=== PATIENT | female | born 1975 | race Caucasian/White ===

== ENCOUNTER 2018-03-18 23:54 | Emergency (ER) | payer SELFPAY ==
[2018-03-19] MEDS ORDERED: IBUPROFEN 400 MG TAB ONE (00:48)
[2018-03-19] MEDS ORDERED: HYDROCODONE/APAP 7.5/325 MG TAB ONE (00:49)
--- NOTE | 2018-03-19 01:08 | ER ---
Nurse's Notes [facility] Name: Elvira Vicente Age: 42 yrs Sex: Female : 1975 Arrival Date: 03/18/2018 Time: 23:55 Bed 19 Private MD: Diagnosis: Right Distal Radius Fracture Presentation: 03/19 00:01 Presenting complaint: Patient states: This morning patient felt and hurt her right ao wrist. Patient complains of pain in the thump radiating to the elbow. Patient took two Aleve pill with no relieve. Transition of care: patient was not received from another setting of care. Onset of symptoms was March 18, 2018 at 09:00. Risk Assessment: Do you want to hurt yourself or someone else? Patient reports no desire to harm self or others. Initial Sepsis Screen: Does the patient meet any 2 criteria? HR > 90 bpm. No. Patient's initial sepsis screen is negative. Does the patient have a suspected source of infection? No. Patient's initial sepsis screen is negative. Care prior to arrival: None. 00:01 Method Of Arrival: Ambulatory ao 00:01 Acuity: BIB 4 ao WELLNESS COORDINATOR: 00:04 LMP N/A - Hysterectomy ao Historical: - Allergies: 00:06 No Known Allergies; ao - Home Meds: 00:06 None [Active]; ao - PSHx: 00:06 Hysterectomy; ao - Immunization history:: Adult Immunizations up to date. - Social history:: Smoking status: Patient uses tobacco products, smokes one-half pack cigarettes per day, Patient/guardian denies using alcohol, street drugs. - Ebola Screening: : Patient negative for fever greater than or equal to 101.5 degrees Fahrenheit, and additional compatible Ebola Virus Disease symptoms Patient denies exposure to infectious person Patient denies travel to an Ebola-affected area in the 21 days before illness onset. Screenin:09 Abuse screen: Denies threats or abuse. Denies injuries from another. Nutritional ao screening: No deficits noted. Tuberculosis screening: No symptoms or risk factors identified. Fall Risk None identified. Assessment: 00:06 General: Appears in no apparent distress. uncomfortable, Behavior is cooperative, ao appropriate for age. Pain: Complains of pain in right hand Pain currently is 8 out of 10 on a pain scale. Neuro: Level of Consciousness is awake, alert, obeys commands, Oriented to person, place, time, situation, Appropriate for age Moves all extremities. Full function Speech is normal, Facial symmetry appears normal. Cardiovascular: Capillary refill < 3 seconds Patient's skin is warm and dry. Respiratory: Airway is patent Trachea midline Respiratory effort is even, unlabored, Respiratory pattern is regular, symmetrical. GI: Abdomen is obese. : No signs and/or symptoms were reported regarding the genitourinary system. EENT: No signs and/or symptoms were reported regarding the EENT system. Derm: No signs and/or symptoms reported regarding the dermatologic system. Musculoskeletal: Range of motion: intact in right wrist Swelling present in right hand Reports pain in right hand. Injury Description: Fall from standing position. 01:10 Reassessment: Patient appears in no apparent distress at this time. Patient and/or ao family updated on plan of care and expected duration. Pain level reassessed. Patient to be discharge. 01:18 Reassessment: Waiting on cast to be discharge. ao 01:48 Reassessment: DC instructions given to patient. Patient agree to follow up with DR henry Vicente. Patient has no questions. Vital Signs: 00:04 BP 144 / 101; Pulse 108; Resp 20; Temp 98.3(O); Pulse Ox 96% on R/A; Weight 90.72 kg ao (R); Height 5 ft. 7 in. (170.18 cm) (R); Pain 8/10; 01:10 BP 106 / 61; Pulse 96; Resp 18; Pulse Ox 98% ; ao 01:40 BP 139 / 88; Pulse 94; Resp 16; Pulse Ox 97% on R/A; Pain 3/10; ao 00:04 Body Mass Index 31.32 (90.72 kg, 170.18 cm) ao ED Course: 03/18 23:55 Patient arrived in ED. es 23:56 Willis Magaña, CLIF is Primary Nurse. ao 03/19 00:02 Bret De La Paz PA is PHCP. cp 00:02 Quinn Ding MD is Attending Physician. cp 00:04 Triage completed. ao 00:05 Arm band placed on right wrist. Patient placed in an exam room, Patient notified of ao wait time. 00:09 Patient has correct armband on for positive identification. Pulse ox on. NIBP on. ao 00:45 X-ray completed. Portable x-ray completed in exam room. Patient tolerated procedure mh1 well. 00:45 XRAY Wrist RIGHT 3 view In Process Unspecified. EDMS 01:07 John Vicente MD is Referral Physician. cp 01:47 No provider procedures requiring assistance completed. Patient did not have IV access ao during this emergency room visit. Administered Medications: 00:45 Drug: Ibuprofen 800 mg Route: PO; ao 01:12 Follow up: Response: No adverse reaction ao 01:12 Follow up: Response: No adverse reaction ao 00:45 Drug: Hydrocodone-Acetaminophen (7.5 mg-325 mg) 1 tabs Route: PO; ao 01:17 Follow up: Response: No adverse reaction ao Outcome: 01:07 Discharge ordered by MD. cp 01:48 Discharged to home ambulatory. ao 01:48 Condition: stable 01:48 Discharge instructions given to patient, Instructed on discharge instructions, follow up and referral plans. Demonstrated understanding of instructions, follow-up care, medications, Prescriptions given X 2. 01:48 Patient left the ED. ao Signatures: Dispatcher [employer] [facility] Ada Rodríguez [facility] Bret De La Paz PA PA cp Ortiz, Alex, RN RN ao Corrections: (The following items were deleted from the chart) 00:14 00:01 Presenting complaint: Patient states: This morning patient felt and hurt her ao right wrist. Patient complains of pain in the thump radiating to the elbow. Patient took two alive pill with no relief. ao
--- NOTE | 2018-03-19 01:08 | EDPHYS ---
Physician Documentation [facility] Name: Elvira Vicente Age: 42 yrs Sex: Female : 1975 Arrival Date: 03/18/2018 Time: 23:55 Bed 19 Private MD: ED Physician Quinn Ding HPI: 03/19 00:30 This 42 yrs old Female presents to ER via Ambulatory with complaints of Wrist cp Injury. 00:30 The patient or guardian reports decreased range of motion, injury, pain. The complaints cp affect the right wrist diffusely. Context: The problem was sustained at home, resulted from a fall. Onset: The symptoms/episode began/occurred this morning. 00:30 Associated signs and symptoms: Pertinent negatives: numbness distally. 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 - Social history:: Smoking status: Patient uses tobacco products, smokes one-half pack cigarettes per day, Patient/guardian denies using alcohol, street drugs. - Ebola Screening: : Patient negative for fever greater than or equal to 101.5 degrees Fahrenheit, and additional compatible Ebola Virus Disease symptoms Patient denies exposure to infectious person Patient denies travel to an Ebola-affected area in the 21 days before illness onset. ROS: 00:35 Constitutional: Negative for body aches, chills, fever, poor PO intake. cp 00:35 Eyes: Negative for injury, pain, redness, and discharge. cp 00:35 Neck: Negative for pain with movement, pain at rest, stiffness, tenderness. 00:35 Cardiovascular: Negative for chest pain. 00:35 Respiratory: Negative for cough, shortness of breath, wheezing. 00:35 Abdomen/GI: Negative for abdominal pain, nausea, vomiting, and diarrhea. 00:35 MS/extremity: Positive for decreased range of motion, pain, swelling, tenderness, of the right wrist, Negative for paresthesias. 00:35 Neuro: Negative for altered mental status, headache, loss of consciousness. 00:35 All other systems are negative. Exam: 00:40 Constitutional: The patient appears in no acute distress, alert, awake, non-toxic, well cp developed, well nourished, uncomfortable. 00:40 Head/Face: Normocephalic, atraumatic. cp 00:40 Eyes: Periorbital structures: appear normal, Conjunctiva: normal, no exudate, no injection, Lids and lashes: appear normal, bilaterally. 00:40 ENT: External ear(s): are unremarkable, Nose: is normal, Mouth: is normal, Posterior pharynx: is normal, airway is patent. 00:40 Neck: C-spine: vertebral tenderness, is not appreciated, crepitus, is not appreciated, ROM/movement: is normal, is supple, without pain, no range of motions limitations, no nuchal rigidity. 00:40 Chest/axilla: Inspection: normal. 00:40 Cardiovascular: Rate: tachycardic, Rhythm: regular. 00:40 Respiratory: the patient does not display signs of respiratory distress, Respirations: normal, no use of accessory muscles, no retractions, no splinting, no tachypnea. 00:40 Back: pain, is absent, ROM is normal. 00:40 Musculoskeletal/extremity: Perfusion: the extremity is normally perfused throughout, Sensation intact. Joints: All joints are normal except the right wrist displays limited range of motion, pain at rest, painful range of motion, swelling, tenderness. 00:40 Skin: cellulitis, is not appreciated, no rash present. cp Vital Signs: 00:04 BP 144 / 101; Pulse 108; Resp 20; Temp 98.3(O); Pulse Ox 96% on R/A; Weight 90.72 kg ao (R); Height 5 ft. 7 in. (170.18 cm) (R); Pain 8/10; 01:10 BP 106 / 61; Pulse 96; Resp 18; Pulse Ox 98% ; ao 01:40 BP 139 / 88; Pulse 94; Resp 16; Pulse Ox 97% on R/A; Pain 3/10; ao 00:04 Body Mass Index 31.32 (90.72 kg, 170.18 cm) ao Procedures: 01:45 Splinting: Splint applied to right wrist using Orthoglass splint, sling, sugar tong cp type. applied by nurse. Examined by me, post splint application: neurovascular intact, Patient tolerated well. MDM: 00:03 Patient medically screened. cp 01:05 Data reviewed: vital signs, nurses notes, radiologic studies, plain films, and as a cp result, I will discharge patient. 01:05 Differential diagnosis: dislocation, closed fracture, contusion, sprain. Test cp interpretation: by ED physician or midlevel provider: plain radiologic studies. Counseling: I had a detailed discussion with the patient and/or guardian regarding: the historical points, exam findings, and any diagnostic results supporting the discharge/admit diagnosis, radiology results, the need for outpatient follow up, a orthopedic surgeon, to return to the emergency department if symptoms worsen or persist or if there are any questions or concerns that arise at home. Response to treatment: the patient's symptoms have markedly improved after treatment, and as a result, I will discharge patient. 03/19 00:25 Order name: XRAY Wrist RIGHT 3 view cp 03/19 01:01 Order name: Sugar Tong Forearm Splint; Complete Time: 01:41 cp 03/19 01:01 Order name: Sling; Complete Time: 01:47 cp Administered Medications: 00:45 Drug: Ibuprofen 800 mg Route: PO; ao 01:12 Follow up: Response: No adverse reaction ao 01:12 Follow up: Response: No adverse reaction ao 00:45 Drug: Hydrocodone-Acetaminophen (7.5 mg-325 mg) 1 tabs Route: PO; ao 01:17 Follow up: Response: No adverse reaction ao Disposition: 03/19/18 01:07 Discharged to Home. Impression: Right Distal Radius Fracture. - Condition is Stable. - Discharge Instructions: Wrist Fracture Treated With Immobilization. - Prescriptions for Naprosyn 500 mg Oral Tablet - take 1 tablet by ORAL route 2 times per day take with food; 20 tablet. Tylenol- Codeine #3 300-30 mg Oral Tablet - take 2 tablets by ORAL route every 6 hours As needed; 20 tablet. - Medication Reconciliation Form, Thank You Letter, Antibiotic Education, Prescription Opioid Use form. - Follow up: John Vicente MD; When: 2 - 3 days; Reason: Recheck today's complaints. - Problem is new. - Symptoms have improved. Addendum: 03/25/2018 12:06 Co-signature as Attending Physician, Quinn Ding MD Available for consultation at p s1 all times. . Signatures: Dispatcher [employer] EDPR Bret De La Paz PA PA cp Willis Magaña RN RN ao Quinn Ding MD MD ps1 Corrections: (The following items were deleted from the chart) 03/19 01:48 01:07 03/19/2018 01:07 Discharged to Home. Impression: Right Distal Radius Fracture. ao Condition is Stable. Forms are Medication Reconciliation Form, Thank You Letter, Antibiotic Education, Prescription Opioid Use. Follow up: Dr. John Vicente; When: 2 - 3 days; Reason: Recheck today's complaints. Problem is new. Symptoms have improved. cp
--- NOTE | 2018-03-19 09:31 | RAD REPORT ---
EXAM DESCRIPTION: RAD - Wrist Right 3 View - 03/19/2018 12:45 am CLINICAL HISTORY: Fall, wrist pain COMPARISON: None. FINDINGS: Transverse fracture of the distal radial metaphysis is present with minimal buckling along the dorsal margin. No angulation deformity. Carpal bones are normally positioned with no acute findi ng. No distal radius abnormality. No foreign body or other soft tissue abnormality. IMPRESSION: Distal radius fracture with no significant distraction or angulation deformity.
== END 2018-03-19 01:48 | disposition home or self-care (01) ==
LOC: ER 23:54
PROC: 2W3CX1Z Immobilization of Right Lower Arm using Splint (ICD-10-PCS; principal; 2018-03-19)
DX: S52.501A Unspecified fracture of the lower end of right radius, initial encounter for closed fracture (principal); W19.XXXA Unspecified fall, initial encounter; Y93.9 Activity, unspecified; Y92.009 Unspecified place in unspecified non-institutional (private) residence as the place of occurrence of the external cause; F17.210 Nicotine dependence, cigarettes, uncomplicated
CPT/HCPCS: 99284

== ENCOUNTER 2019-11-10 21:24 | Emergency (ER) | payer OTHER, SELFPAY ==
[2019-11-10] MEDS ORDERED: NA CHLORIDE 0.9% 100 ML IV ONE (21:50)
[2019-11-10] MEDS ORDERED: ONDANSETRON 4 MG/2 ML VIAL ONE (21:50)
[2019-11-10] MEDS ORDERED: METHOCARBAMOL 1,000 MG/10 ML VIAL IV ONE (21:50)
[2019-11-10] MEDS ORDERED: MORPHINE 4 MG/ML SYR ONE (21:50)
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
[2019-11-10] MEDS ORDERED: HYDROMORPHONE HCL 1 MG/ML INJ ONE (23:35)
[2019-11-11 02:11] VITALS: BP 158/95; TEMP 98; O2SAT 98
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
== END 2019-11-11 00:30 | disposition short-term general hospital (02) ==
LOC: ER 21:24
DX: S32.011A Stable burst fracture of first lumbar vertebra, initial encounter for closed fracture (principal); V48.0XXA Car driver injured in noncollision transport accident in nontraffic accident, initial encounter; F17.210 Nicotine dependence, cigarettes, uncomplicated
CPT/HCPCS: 72131; 72192; 99285; J1170; J2405; J2800

== ENCOUNTER 2024-07-15 08:14 | Emergency (ER) | payer BC ==
--- OUTSIDE RECORDS SUMMARY | 2024-07-15 08:18 | XMS REPORT | Continuity of Care Document ---
Author Name Unknown Address [address] [facility] [address] [place] [address] [facility] [address] [facility] [address] [place] [address] Care Team Providers Care Real Estate Rep Name Role Phone Rani Denson Primary Care Physician + [phone] Willy Newton Attending Clinician Unavailable Mary Harrington Attending Clinician Unavailable Emily Wang L Attending Clinician Unavailable Rani Denson Attending Clinician + [phone] Doctor Unassigned, Sallis Attending Clinician U kimberlyailRANI Vazquez Attending Clinician Unavailable Lab, Ang - Db Attending Clinician Unavailable Rani Denson Attending Clinician [phone] [email or web address] Attending Clinician Unavaila ble Doctor Unassigned, Sallis Attending Clinician U navailable GUERITA ABREU Attending Clinician Unavailable NASRIN MILTON Attending Clinician Unavailable Hiwot Cuadra MD Attending Clinician Ruby Marin Attending Clinician HIWOT CUADRA Attending Clinician Unavailable RANI AZAR Admitting Clinician Unavailable [email or web address] Admitting Clinician Unavaila ble Payers Payer Name Policy Type Policy Number Effective Date Expirati on Date Source [place] [address] [id number] 2020 00:00:00 [facility] Problems Condition Name Condition Details Condition Category Status Onset Date Resolution Date Last Treatment Date Treating Clinician Comments Source Hearing loss Decreased hearing of left ear Problem [facility] [id number] Fibromyalg ia Problem [facility] Somnolence Somnolence , daytime Problem [facility] [id number] Irritable bowel syndrome, unspecifie d type Problem [facility] [id number] Cigarette nicotine dependence without complicati on Problem [facility] [id number] Migraine with aura and with status migrainosu s, not intractabl e Problem [facility] [id number] Mixed hyperlipid emia Problem [facility] [id number] Primary insomnia Problem [facility] Vitamin D deficiency Vitamin D deficiency Problem [facility] [id number] Essential hypertensi on Problem [facility] [id number] Chronic fatigue Problem [facility] [id number] Depression with anxiety Problem [facility] [id number] Seasonal allergies Problem [facility] [id number] Low HDL (under 40) Problem [facility] [id number] Symptomati c spider varicose vein Problem [facility] [id number] Migraine with status migrainosu s, not intractabl e, unspecifie d migraine type Problem [facility] No known active problems No known active problems Disease [facility] Allergies, Adverse Reactions, Alerts Allergy Name Allergy Type Status Severity Reaction(s) Onset Date Inactive Date Treating Clinician Comments Source NO KNOWN ALLERGIE S Drug Class Active [facility] Social History Social Habit Start Date Stop Date Quantity Comments Source Sex Assigned At [facility] Exposure to SARS-CoV-2 (event) Not sure [facility] Gender identity [facility] acute [facility] Sexual orientation [facility] Alcoholic beverage intake 2024-05-18 00:00:00 2024-05-18 00:00:00 Current drinker of alcohol (finding) [facility] Tobacco use and exposure 2024-01-27 00:00:00 2024-01-27 00:00:00 Smokeless tobacco non-user [facility] History of Social function 2024-01-27 00:00:00 2024-01-27 00:00:00 [facility] Alcohol intake 2023-04-20 00:00:00 2023-04-20 00:00:00 Current drinker of alcohol (finding) [facility] Alcohol Comment 2023-02-09 00:00:00 2023-02-09 00:00:00 rarely [facility] History of tobacco use 1999-08-17 00:00:00 2019-08-17 00:00:00 Cigarette Smoker [facility] Smoking Status Start Date Stop Date Source Ex-smoker 2024-01-27 00:00:00 2024-01-27 00:00:00 U [facility] Current Smoker 2022-06-08 00:00:00 [facility] Medications Ordered Medication Name Filled Medication Name Start Date Stop Date Current Medication? Ordering Clinician Indication Dosage Frequency Signature (SIG) Comments Components Source SUMAtriptan 25 mg tablet 2023-07 00:00: 00 Yes [id number] TAKE 1 TABLET BY MOUTH ONCE NEEDED FOR MIGRAINE. MAY REPEAT DOSE ONCE AFTER AT LEAST 2 HOURS [facility] clotrimazol e-betametha sone cream 9-20 00:00: 00 04-07 04:59 :00 No [id number] Apply to area(s) 2 (two) times daily for 7 days. [facility] traZODone 100 mg tablet 4-0 7-19 00:00: 00 Yes [id number] 100mg Take 1 tablet by mouth at bedtime. Follow-up for refills and fasting labs. [facility] SUMAtriptan 25 mg tablet 4-0 7-19 00:00: 00 05-31 00:00 :00 No [id number] TAKE 1 TABLET BY MOUTH ONCE NEEDED FOR MIGRAINE. MAY REPEAT DOSE ONCE AFTER AT LEAST 2 HOURS [facility] traZODone 100 mg tablet 2023-0 7-02 00:00: 00 01-26 00:00 :00 No [id number] 100mg Take 1 tablet by mouth at bedtime. Follow-up for refills and fasting labs. [facility] traZODone 100 mg tablet 2023-0 6-10 00:00: 00 Yes [id number] 100mg Take 1 tablet by mouth at bedtime. [facility] traZODone 100 mg tablet 2023-0 6-10 00:00: 00 01-06 00:00 :00 No [id number] 100mg Take 1 tablet by mouth at bedtime. [facility] traZODone 100 mg tablet 2023-0 5-13 00:00: 00 Yes [id number] 100mg Take 1 tablet by mouth at bedtime. [facility] SUMAtriptan 25 mg tablet 2023-0 5-13 00:00: 00 01-26 00:00 :00 No [id number] TAKE 1 TABLET BY MOUTH ONCE NEEDED FOR MIGRAINE. MAY REPEAT DOSE ONCE AFTER AT LEAST 2 HOURS [facility] traZODone 100 mg tablet 2023-0 5-13 00:00: 00 12-18 00:00 :00 No [id number] 100mg Take 1 tablet by mouth at bedtime. [facility] traZODone 100 mg tablet 2023-0 4-12 00:00: 00 11-14 00:00 :00 No [id number] 100mg Take 1 tablet by mouth at bedtime. [facility] SUMAtriptan (IMITREX) 25 mg tablet 2022-07 0- 00:00: 00 11-20 00:00 :00 No [id number] Take 1 tab PO x1 as needed for migraine. May repeat dose x 1 after at least 2 hours. [facility] traZODone 100 mg tablet 2022-07 0- 00:00: 00 10-20 00:00 :00 No [id number] 100mg Take 1 tablet by mouth at bedtime. [facility] methylPREDN ISolone (MEDROL, LIZBETH,) 4 mg tablets 02-09 00:00: 00 04-20 00:00 :00 No [id number] Take by mouth SEE-INSTRU CTIONS. follow package directions [facility] traZODone 100 mg tablet 01-19 00:00: 00 04-20 00:00 :00 No TAKE 1 TO 1 AND 1/2 TABLETS BY MOUTH EVERY DAY AT BEDTIME NEEDED [facility] Benzonatate 200 MG Benzonatate 200 MG 2021-07 1-30 00:00: 00 06-19 00:00 :00 No 1{capsu le_as_n eeded} TID Benzonatat e 200 MG DULoxetine HCl 30 MG DULoxetine HCl 30 MG 10-21 00:00: 00 No 1{capsu le} QD DULoxetine HCl 30 MG lisinopriL 10 mg tablet 208 00:00: 00 02-09 00:00 :00 No [id number] 10mg Take 1 tablet by mouth daily. [facility] Fluconazole 150 MG Fluconazole 150 MG 2020-07 0- 00:00: 00 04-29 00:00 :00 No 1{table t} Fluconazol e 150 MG Trazodone HCl Trazodone HCl 01-17 00:00: 00 Yes Na Wang 1 tablet at bedtime [facility] Chantix Starting Month Lizbeth Chantix Starting Month Lizbeth 01-17 00:00: 00 02-13 00:00 :00 No Na Wang as directed [facility] Dicyclomine HCl 20 MG Dicyclomine HCl 20 MG No 1{table t} Dicyclomin e HCl 20 MG Imitrex 50 MG Imitrex 50 MG No 1{table t_as_ne eded} Imitrex 50 MG FLUoxetine HCl 10 MG FLUoxetine HCl 10 MG No 1{table t} QD FLUoxetine HCl 10 MG Augmentin 875-125 MG Augmentin 875-125 MG No 1{table t} BID Augmentin 875-125 MG Augmentin 875-125 MG Augmentin 875-125 MG No 1{table t} BID Augmentin 875-125 MG Dicyclomine HCl 20 MG Dicyclomine HCl 20 MG No 1{table t} Dicyclomin e HCl 20 MG FLUoxetine HCl 10 MG FLUoxetine HCl 10 MG No 1{table t} QD FLUoxetine HCl 10 MG Imitrex 50 MG Imitrex 50 MG No 1{table t_as_ne eded} Imitrex 50 MG SUMAtriptan Succinate 50 MG SUMAtriptan Succinate 50 MG No SUMAtripta n Succinate 50 MG SUMAtriptan Succinate 50 MG SUMAtriptan Succinate 50 MG No SUMAtripta n Succinate 50 MG Imitrex 50 MG Imitrex 50 MG No 1{table t_as_ne eded} Imitrex 50 MG Dicyclomine HCl 20 MG Dicyclomine HCl 20 MG No 1{table t} Dicyclomin e HCl 20 MG Augmentin 875-125 MG Augmentin 875-125 MG No 1{table t} BID Augmentin 875-125 MG SUMAtriptan Succinate 50 MG SUMAtriptan Succinate 50 MG No SUMAtripta n Succinate 50 MG Imitrex 50 MG Imitrex 50 MG No 1{table t_as_ne eded} Imitrex 50 MG Dicyclomine HCl 20 MG Dicyclomine HCl 20 MG No 1{table t} Dicyclomin e HCl 20 MG Augmentin 875-125 MG Augmentin 875-125 MG No 1{table t} BID Augmentin 875-125 MG Imitrex 50 MG Imitrex 50 MG No 1{table t_as_ne eded} Imitrex 50 MG Augmentin 875-125 MG Augmentin 875-125 MG No 1{table t} BID Augmentin 875-125 MG SUMAtriptan Succinate 50 MG SUMAtriptan Succinate 50 MG No SUMAtripta n Succinate 50 MG Dicyclomine HCl 20 MG Dicyclomine HCl 20 MG No 1{table t} Dicyclomin e HCl 20 MG Imitrex 50 MG Imitrex 50 MG No 1{table t_as_ne eded} Imitrex 50 MG Augmentin 875-125 MG Augmentin 875-125 MG No 1{table t} BID Augmentin 875-125 MG SUMAtriptan Succinate 50 MG SUMAtriptan Succinate 50 MG No SUMAtripta n Succinate 50 MG Dicyclomine HCl 20 MG Dicyclomine HCl 20 MG No 1{table t} Dicyclomin e HCl 20 MG Flonase 50 MCG/ACT Flonase 50 MCG/ACT No 2{spray _in_eac h_nostr il} QD Flonase 50 MCG/ACT Augmentin 875-125 MG Augmentin 875-125 MG No 1{table t} BID Augmentin 875-125 MG SUMAtriptan Succinate 50 MG SUMAtriptan Succinate 50 MG No SUMAtripta n Succinate 50 MG Dicyclomine HCl 20 MG Dicyclomine HCl 20 MG No 1{table t} Dicyclomin e HCl 20 MG Imitrex 50 MG Imitrex 50 MG No 1{table t_as_ne eded} Imitrex 50 MG Flonase 50 MCG/ACT Flonase 50 MCG/ACT No 2{spray _in_eac h_nostr il} QD Flonase 50 MCG/ACT Dicyclomine HCl 20 MG Dicyclomine HCl 20 MG No 1{table t} Dicyclomin e HCl 20 MG SUMAtriptan Succinate 50 MG SUMAtriptan Succinate 50 MG No QD SUMAtripta n Succinate 50 MG Augmentin 875-125 MG Augmentin 875-125 MG No 1{table t} BID Augmentin 875-125 MG Flonase 50 MCG/ACT Flonase 50 MCG/ACT No 2{spray _in_eac h_nostr il} QD Flonase 50 MCG/ACT Dicyclomine HCl 20 MG Dicyclomine HCl 20 MG No 1{table t} Dicyclomin e HCl 20 MG SUMAtriptan Succinate 50 MG SUMAtriptan Succinate 50 MG No QD SUMAtripta n Succinate 50 MG Augmentin 875-125 MG Augmentin 875-125 MG No 1{table t} BID Augmentin 875-125 MG SUMAtriptan Succinate 50 MG SUMAtriptan Succinate 50 MG No QD SUMAtripta n Succinate 50 MG Dicyclomine HCl 20 MG Dicyclomine HCl 20 MG No 1{table t} Dicyclomin e HCl 20 MG Augmentin 875-125 MG Augmentin 875-125 MG No 1{table t} BID Augmentin 875-125 MG Flonase 50 MCG/ACT Flonase 50 MCG/ACT No 2{spray _in_eac h_nostr il} QD Flonase 50 MCG/ACT traZODone HCl 100 MG traZODone HCl 100 MG No traZODone HCl 100 MG Augmentin 875-125 MG Augmentin 875-125 MG No 1{table t} BID Augmentin 875-125 MG SUMAtriptan Succinate 50 MG SUMAtriptan Succinate 50 MG No SUMAtripta n Succinate 50 MG traZODone HCl 100 MG traZODone HCl 100 MG No QD traZODone HCl 100 MG Imitrex 50 MG Imitrex 50 MG No 1{table t_as_ne eded} Imitrex 50 MG Dicyclomine HCl 20 MG Dicyclomine HCl 20 MG No 1{table t} Dicyclomin e HCl 20 MG Augmentin 875-125 MG Augmentin 875-125 MG No 1{table t} BID Augmentin 875-125 MG SUMAtriptan Succinate 50 MG SUMAtriptan Succinate 50 MG No SUMAtripta n Succinate 50 MG traZODone HCl 100 MG traZODone HCl 100 MG No QD traZODone HCl 100 MG Imitrex 50 MG Imitrex 50 MG No 1{table t_as_ne eded} Imitrex 50 MG Dicyclomine HCl 20 MG Dicyclomine HCl 20 MG No 1{table t} Dicyclomin e HCl 20 MG Immunizations Ordered Immunization Name Filled Immunization Name Date Status Comments Source Pfizer COVID-19 Vaccine Pfizer COVID-19 Vaccine 2021-03-05 09:56:00 Completed [facility] Pfizer COVID-19 Vaccine Pfizer COVID-19 Vaccine 2021-03-05 09:56:00 Completed [facility] Pfizer COVID-19 Vaccine Pfizer COVID-19 Vaccine 2021-03-05 09:56:00 Completed [facility] Pfizer COVID-19 Vaccine Pfizer COVID-19 Vaccine 2021-03-05 09:56:00 Completed [facility] Pfizer COVID-19 Vaccine Pfizer COVID-19 Vaccine 2021-03-05 09:56:00 Completed [facility] Pfizer COVID-19 Vaccine Pfizer COVID-19 Vaccine 2021-03-05 09:56:00 Completed [facility] Pfizer COVID-19 Vaccine Pfizer COVID-19 Vaccine 2021-03-05 09:56:00 Completed [facility] Pfizer COVID-19 Vaccine Pfizer COVID-19 Vaccine 2021-03-05 09:56:00 Completed [facility] Pfizer COVID-19 Vaccine Pfizer COVID-19 Vaccine 2021-03-05 09:56:00 Completed [facility] Pfizer COVID-19 Vaccine Pfizer COVID-19 Vaccine 2021-03-05 09:56:00 Completed [facility] Pfizer COVID-19 Vaccine Pfizer COVID-19 Vaccine 2021-03-05 09:56:00 Completed [facility] Pfizer COVID-19 Vaccine Pfizer COVID-19 Vaccine Unknown Completed [facility] Vital Signs Vital Name Observation Time Observation Value Comments S ource Systolic blood pressure 2024-03-30 12:03:00 139 mm[Hg] [facility] Diastolic blood pressure 2024-03-30 12:03:00 88 mm[Hg] [facility] Heart rate 2024-03-30 12:03:00 72 /min [facility] Body height 2024-03-30 12:03:00 170.2 cm [facility] Body weight 2024-03-30 12:03:00 110.995 kg [facility] BMI 2024-03-30 12:03:00 38.33 kg/m2 [facility] Oxygen saturation in Arterial blood by Pulse oximetry 2024-03-30 12:03:00 96 /min [facility] Systolic blood pressure 2024-01-27 13:59:00 138 mm[Hg] [facility] Diastolic blood pressure 2024-01-27 13:59:00 85 mm[Hg] [facility] Heart rate 2024-01-27 13:59:00 80 /min [facility] Body temperature 2024-01-27 13:59:00 36.83 Naomi [facility] Body height 2024-01-27 13:59:00 170.2 cm [facility] Body weight 2024-01-27 13:59:00 111.585 kg [facility] acute [facility] BMI 2024-01-27 13:59:00 38.53 kg/m2 [facility] Systolic blood pressure 2023-04-20 21:17:00 135 mm[Hg] [facility] Diastolic blood pressure 2023-04-20 21:17:00 81 mm[Hg] [facility] Heart rate 2023-04-20 21:17:00 92 /min [facility] Body temperature 2023-04-20 21:17:00 36.5 Naomi [facility] Body height 2023-04-20 21:17:00 170.2 cm [facility] Body weight 2023-04-20 21:17:00 110.451 kg [facility] BMI 2023-04-20 21:17:00 38.14 kg/m2 [facility] Oxygen saturation in Arterial blood by Pulse oximetry 2023-04-20 21:17:00 96 /min [facility] Systolic blood pressure 2023-02-09 18:29:00 138 mm[Hg] [facility] Diastolic blood pressure 2023-02-09 18:29:00 85 mm[Hg] [facility] Heart rate 2023-02-09 18:29:00 79 /min [facility] Body height 2023-02-09 18:29:00 167.6 cm [facility] Body weight 2023-02-09 18:29:00 112.946 kg [facility] acute hospital BMI 2023-02-09 18:29:00 40.19 kg/m2 [facility] acute hospital Oxygen saturation in Arterial blood by Pulse oximetry 2023-02-09 18:29:00 98 /min [facility] height 2022-06-08 08:20:00 67 [in_i] Commo n [facility] weight 2022-06-08 08:20:00 248 [lb_av] Comm on [facility] temperature 2022-06-08 08:20:00 98.6 [degF] Com mon [facility] bmi 2022-06-08 08:20:00 38.84 kg/m2 Comm on [facility] respiratory rate 2022-06-08 08:20:00 17 /min Common [facility] height 2022-04-07 09:00:00 67 [in_i] Commo n [facility] weight 2022-04-07 09:00:00 252 [lb_av] Comm on [facility] temperature 2022-04-07 09:00:00 98 [degF] Comm on [facility] bmi 2022-04-07 09:00:00 39.46 kg/m2 Comm on [facility] height 2021-10-21 09:00:00 67 [in_i] Commo n [facility] weight 2021-10-21 09:00:00 246 [lb_av] Comm on [facility] temperature 2021-10-21 09:00:00 97.5 [degF] Com mon [facility] bmi 2021-10-21 09:00:00 38.52 kg/m2 Comm on [facility] Systolic blood pressure 2021-08-18 20:14:00 151 mm[Hg] [facility] Diastolic blood pressure 2021-08-18 20:14:00 98 mm[Hg] [facility] Heart rate 2021-08-18 20:14:00 84 /min [facility] Body temperature 2021-08-18 20:14:00 36.78 Naomi [facility] Respiratory rate 2021-08-18 20:14:00 18 /min [facility] Body height 2021-08-18 20:14:00 170.2 cm [facility] Body weight 2021-08-18 20:14:00 110.451 kg [facility] acute hospital BMI 2021-08-18 20:14:00 38.14 kg/m2 [facility] acute hospital Oxygen saturation in Arterial blood by Pulse oximetry 2021-08-18 20:14:00 98 /min [facility] height 2021-07-17 14:40:00 67.00 [in_i] Com [facility] weight 2021-07-17 14:40:00 245.0 [lb_av] Co [facility] temperature 2021-07-17 14:40:00 97.7 [degF] Com [facility] bmi 2021-07-17 14:40:00 38.37 kg/m2 Comm on [facility] oximetry 2021-07-17 14:40:00 98 % Commo n [facility] respiratory rate 2021-07-17 14:40:00 18 /min [facility] blood pressure systolic 2021-07-17 14:40:00 130 mm[Hg] [facility] blood pressure diastolic 2021-07-17 14:40:00 68 mm[Hg] [facility] height 2021-05-27 11:00:00 67.00 [in_i] Com [facility] weight 2021-05-27 11:00:00 243.6 [lb_av] Co [facility] temperature 2021-05-27 11:00:00 98.3 [degF] Com [facility] bmi 2021-05-27 11:00:00 38.15 kg/m2 Comm on [facility] blood pressure systolic 2021-05-27 11:00:00 132 mm[Hg] [facility] blood pressure diastolic 2021-05-27 11:00:00 86 mm[Hg] [facility] Procedures Procedure Date / Time Performed Performing Clinician Source BI SCREENING TOMOSYNTHESIS BILATERAL 2024-05-18 14:07:[address] [facility] CBC (INCLUDES DIFF/PLT)-Q 2023-02-19 13:22:00 Rani Azar [facility] ASSIGNMENT OF BENEFITS 2023-02-09 20:26:28 Docto r Unassigned, Sallis [facility] CONSENT/REFUSAL FOR DIAGNOSIS AND TREATMENT 2023-02-09 20:26:14 Doctor Unassigned, Sallis [facility] ASSIGNMENT OF BENEFITS 2023-02-09 18:04:56 Docto r Unassigned, Sallis [facility] Encounters Start Date/Time End Date/Time Encounter Type Admission Type Attending [facility] Care Facility Care Department Encounter ID Source 2022-10-14 14:38:01 Outpatient Willy Newton STLMLC ST[facility] [id number] [facility] 2022-09-16 16:50:00 Outpatient JuanyMary barrett STLMLC STLMLC [id number] [facility] 2022-08-09 16:52:00 Outpatient Juany Mary STLMLC STLMLC [id number] [facility] 2022-05-04 07:17:00 Outpatient Emily Wang STLMLC STLMLC [id number] [facility] 2022-04-08 16:04:02 Outpatient Emily Wang STLMLC STLMLC [id number] [facility] 2022 14:35:01 Outpatient Emily Wang STLMLC STLMLC [id number] [facility] 2021-10-20 08:40:01 Outpatient Emily Wang STLMLC STLMLC [id number] [facility] 2021-08-05 14:32:24 Outpatient Wang, Na STLMLC STLMLC [id number] [facility] 2021-08-05 14:13:56 Outpatient Wang, Na STLMLC STLMLC [id number] [facility] 2021-08-05 14:12:56 Outpatient Wang, Na STLMLC STLMLC [id number] [facility] 2021-08-05 14:02:31 Outpatient Wang, Na STLMLC STLMLC [id number] [facility] 2021-08-05 13:25:25 Outpatient Wang, Na STLMLC STLMLC [id number] [facility] 2021-08-05 13:24:15 Outpatient Wang, Na STLMLC STLMLC [id number] [facility] 2021-08-05 13:23:11 Outpatient Wang, Na STLMLC STLMLC [id number] [facility] 2021-08-05 12:51:57 Outpatient Wang, Na STLMLC STLMLC [id number] [facility] 2021-08-05 12:09:28 Outpatient Wang, Na STLMLC STLMLC [id number] [facility] 2021-08-05 12:01:10 Outpatient Wang, Na STLMLC STLMLC [id number] [facility] 2021-08-05 11:30:49 Outpatient Wang, Na STLMLC STLMLC [id number] [facility] 2024-07-08 00:00:00 2024-07-10 15:13:48 Refill Rani Azar [facility] [id number] 350.1.13.10 [id number] [id number] [facility] 2024-05-23 00:00:00 2024-06-23 18:19:13 Patient Secure Msg Doctor Unassigned, Sallis Doctor Unassigned, Sallis [facility] [id number] 350.1.13.10 4.2.7.2.686 [id number] [facility] 2024-05-31 00:00:00 2024-06-06 09:37:47 Refill Rani Azar [facility] [id number] 350.1.13.10 4.2.7.2.686 [id number] [facility] 2024-05-18 07:24:15 2024-05-18 23:59:00 Outpatient R RANI AZAR [facility] [id number] [facility] 2024-05-18 07:24:15 2024-05-18 23:59:00 Hospital En[facility] [id number] 350.1.13.10 4.2.7.2.686 [id number] [facility] 2024-04-11 00:00:00 2024-04-11 14:45:11 Telephone Nestor Rani Gordillo [facility] 1.2840.114 350.1.13.10 4.2.7.2.686 [id number] [facility] 2024-04-11 00:00:00 2024-04-11 13:18:40 [facility] [id number] 350.1.13.10 4.2.7.2.686 [id number] [facility] 2024-03-30 07:00:00 2024-03-30 07:30:00 [facility] [id number] 350.1.13.10 4.2.7.2.686 [id number] [facility] 2024-03-30 07:00:00 2024-03-30 07:00:00 Outpatient R RANI AZAR [facility] [id number] [facility] 2024-03-20 00:00:00 2024-03-23 10:05:30 [facility] [id number] 350.1.13.10 4.2.7.2.686 [id number] [facility] 2024-01-27 09:45:00 2024-01-27 10:00:00 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, Ang - Db [facility]ani Az[facility] [id number] 350.1.13.10 [id number] [id number] [facility] 2024-01-27 09:00:00 2024-01-27 09:47:52 Outpatient R RANI AZAR [facility] [id number] [facility] 2024-01-27 09:00:00 2024-01-27 09:47:52 [facility] [id number] 350.1.13.10 4.2.7.2.686 [id number] [facility] 2024-01-07 00:00:00 2024-01-10 15:26:38 [facility] [id number] 350.1.13.10 4.2.7.2.686 [id number] [facility] 2023-12-19 00:00:00 2023-12-19 14:55:52 Refill Nestor, Rani A [facility] [id number] 350.1.13.10 4.2.7.2.686 [id number] [facility] 2023-11-21 00:00:00 2023-11-22 08:19:53 Telephone Nestor, Rani A [facility] [place] [facility] 1.2.840.114 350.1.13.10 4.2.7.2.686 [id number] [facility] 2023-11-21 00:00:00 2023-11-22 06:55:33 Refill Nestor, Rani A [facility] [place] [facility] 1.2.840.114 350.1.13.10 4.2.7.2.686 [id number] [facility] 2023-11-15 00:00:00 2023-11-21 11:11:50 Refill Nestor, Rani Duy [facility] [place] [facility] 1.2.840.114 350.1.13.10 4.2.7.2.686 [id number] [facility] 2023-11-15 00:00:00 2023-11-21 11:11:35 Refill Nestor, Rani A [facility] [place] DON?[facility] 1.2.840.114 350.1.13.10 4.2.7.2.686 [id number] [facility] 2023-10-21 00:00:00 2023-10-21 00:00:00 Refill Nestor, Rani A [facility] [place] DON?[facility] 1.2.840.114 350.1.13.10 4.2.7.2.686 [id number] [facility] 2023-10-20 00:00:00 2023-10-20 00:00:00 [facility] 1.2.840.114 350.1.13.10 4.2.7.2.686 [id number] [facility] 2023-10-19 00:00:00 2023-10-19 00:00:00 [facility] 1.2.840.114 350.1.13.10 4.2.7.2.686 [id number] [facility] 2023-10-18 00:00:00 2023-10-18 00:00:00 Refill Rani Azar [facility] DON?[facility] 1.2.840.114 350.1.13.10 4.2.7.2.686 [id number] [facility] 2023-07-08 14:30:00 2023-07-08 14:30:00 Outpatient R RANI AZAR [facility] [id number] [facility] 2023-05-09 00:00:00 2023-05-09 00:00:00 Outpatient GC_GCBZW_Ka diyala_S PRIV PRIV [id number] [facility] 2023-05-08 00:00:00 2023-05-08 00:00:00 Outpatient GC_GCBZW_Ka diyala_S PRIV PRIV [id number] [facility] 2023-04-20 16:30:00 2023-04-20 17:22:31 Outpatient R RANI AZAR [facility] [id number] [facility] 2023-04-20 16:30:00 2023-04-20 17:22:31 Office Visit Rani Azar [facility] [place] 1.2.840.114 350.1.13.10 4.2.7.2.686 [id number] [facility] 2023-04-06 16:30:00 2023-04-06 16:30:00 Outpatient R RANI AZAR [facility] [id number] [facility] 2023-03-22 00:00:00 2023-03-22 00:00:00 Telephone [facility] 1.2.840.114 350.1.13.10 4.2.7.2.686 [id number] [facility] 2023-02-25 00:00:00 2023-02-25 00:00:00 Patient Secure Msg Doctor Unassigned, Sallis [facility] [place] 1.2.840.114 350.1.13.10 4.2.7.2.686 [id number] [facility] 2023-02-25 00:00:00 2023-02-25 00:00:00 Telephone [facility] 1.2.840.114 350.1.13.10 4.2.7.2.686 [id number] [facility] 2023-02-19 00:00:00 2023-02-19 00:00:00 Orders Only Nestor Rani A [facility] 1.2.840.114 350.1.13.10 4.2.7.2.686 [id number] [facility] 2023-02-15 08:00:00 2023-02-15 08:00:00 Outpatient NASRIN EDMONDS [facility] [id number] [facility] 2023-02-11 16:00:00 2023-02-11 16:00:00 Outpatient Veronica NASRIN MIL[place] [facility] [id number] [facility] 2023-02-11 00:00:00 2023-02-11 00:00:00 Telephone Nestor Rani A [facility] 1.2.840.114 350.1.13.10 4.2.7.2.686 [id number] [facility] 2023-02-11 00:00:00 2023-02-11 00:00:00 Telephone Lore Azarjasper Gordillo [facility] 1.2840.114 350.1.13.10 4.2.7.2.686 [id number] [facility] 2023-02-11 00:00:00 2023-02-11 00:00:00 Patient Secure Msg Doctor Unassigned, Sallis [facility] 1.2840.114 350.1.13.10 4.2.7.2.686 [id number] [facility] 2023-02-10 00:00:00 2023-02-10 00:00:00 Telephone Lore Azarjasper Gordillo [facility] 1.284.114 350.1.13.10 4.2.7.2.686 [id number] [facility] 2023-02-10 00:00:00 2023-02-10 00:00:00 Patient Secure Msg Doctor Unassigned, Sallis [facility] 1.2840.114 350.1.13.10 4.2.7.2.686 [id number] [facility] 2023-02-09 15:25:45 2023-02-09 23:59:00 Hospital Encounter Rani Azar [facility] 1.2.840.114 350.1.13.10 4.2.7.2.686 [id number] [facility] 2023-02-09 15:25:45 2023-02-09 23:59:00 Outpatient R RANI AZAR [facility] [id number] [facility] 2023-02-09 15:25:23 2023-02-09 23:59:00 Hospital Encounter Rani Azar [facility] 1.2.840.114 350.1.13.10 4.2.7.2.686 [id number] [facility] 2023-02-09 15:25:01 2023-02-09 23:59:00 Hospital Encounter Rani Azar [facility] 1.2.840.114 350.1.13.10 4.2.7.2.686 [id number] [facility] 2023-02-09 15:24:23 2023-02-09 15:24:23 Hospital Encounter Rani Azar [facility] 1.2.840.114 350.1.13.10 4.2.7.2.686 [id number] [facility] 2023-02-09 13:30:00 2023-02-09 14:27:45 Office Visit Rani Azar [facility] 1.2.840.114 350.1.13.10 4.2.7.2.686 [id number] [facility] 2023-02-09 00:00:00 2023-02-09 00:00:00 Orders Only Doctor Unassigned, Sallis [facility] 1.2.840.114 350.1.13.10 4.2.7.2.686 [id number] [facility] 2022-08-25 00:00:00 2022-08-25 00:00:00 (TEL) STLMLC STLMLC [id number] [facility] 2022-08-09 00:00:00 2022-08-09 00:00:00 (TEL) STLMLC STLMLC [id number] [facility] 2022-08-06 00:00:00 2022-08-06 00:00:00 (TEL) STLMLC STLMLC [id number] [facility] 2022-06-09 00:00:00 2022-06-09 00:00:00 (TEL) STLMLC STLMLC [id number] [facility] 2022-06-08 00:00:00 2022-06-08 00:00:00 OFFICE VISIT EST PT LEVEL 3 STLMLC STLMLC [id number] [facility] 2022-06-07 00:00:00 2022-06-07 00:00:00 (TEL) STLMLC STLMLC [id number] [facility] 2022-05-05 00:00:00 2022-05-05 00:00:00 (TEL) STLMLC STLMLC [id number] [facility] 2022-05-05 00:00:00 2022-05-05 00:00:00 OFFICE VISIT EST PT LEVEL 3 STLMLC STLMLC [id number] [facility] 2022-04-07 00:00:00 2022-04-07 00:00:00 OFFICE VISIT ESTAB PT LEVEL 4 STLMLC STLMLC [id number] [facility] 2022-04-07 00:00:00 2022-04-07 00:00:00 (TEL) STLMLC STLMLC [id number] [facility] 2022-01-21 00:00:00 2022-01-21 00:00:00 (TEL) STLMLC STLMLC [id number] [facility] 2022-01-14 00:00:00 2022-01-14 00:00:00 (TEL) STLMLC STLMLC [id number] [facility] 2021-10-21 00:00:00 2021-10-21 00:00:00 OFFICE VISIT ESTAB PT LEVEL 4 STLMLC STLMLC [id number] [facility] 2021-08-18 15:00:00 2021-08-18 15:15:00 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, Mohit Cuadra [facility] 1.2.840.114 350.1.13.10 4.2.7.2.686 [id number] [facility] 2021-08-18 14:00:00 2021-08-18 14:24:08 Urgent Care Hiwot Cuadra [facility] 1.2.840.114 350.1.13.10 4.2.7.2.686 [id number] [facility] 2021-08-18 14:00:00 2021-08-18 14:24:08 Outpatient R HIWOT CUADRA [facility] [id number] [facility] 2021-08-18 00:00:00 2021-08-18 00:00:00 (TEL) STLMLC STLMLC [id number] [facility] 2021-07-17 00:00:00 2021-07-17 00:00:00 OFFICE VISIT EST PT LEVEL 3 STLMLC STLMLC [id number] [facility] 2021-05-27 00:00:00 2021-05-27 00:00:00 OFFICE VISIT EST PT LEVEL 3 STLMLC STLMLC [id number] [facility] 2021-05-19 00:00:00 2021-05-19 00:00:00 (TEL) STLMLC STLMLC [id number] [facility] 2021-04-28 00:00:00 2021-04-28 00:00:00 (TEL) STLMLC STLMLC [id number] [facility] 2021-02-27 00:00:00 2021-02-27 00:00:00 Outpatient STLMLC STLMLC [id number] [facility] 2021-01-21 00:00:00 2021-01-21 00:00:00 Outpatient STLMLC STLMLC [id number] [facility] 2021-01-15 00:00:00 2021-01-15 00:00:00 Outpatient STLMLC STLMLC [id number] [facility] 2020-10-29 00:00:00 2020-10-29 00:00:00 Outpatient STLMLC STLMLC [id number] [facility] 2020-06-10 00:00:00 2020-06-10 00:00:00 Outpatient STLMLC STLMLC [id number] [facility] 2020-02-13 09:00:00 2020-02-13 09:00:00 [facility] [address] [facility] [id number] [facility] 2020-01-20 19:17:00 2020-01-20 19:17:00 Out[facility] [address] [facility] [id number] [facility] 2020-01-18 10:00:00 2020-01-18 10:00:00 [facility] [address] [facility] [id number] [facility] Results Test Description Test Time Test Comments Results Result Co mments Source [facility]
[2024-07-15] MEDS ORDERED: IBUPROFEN 200 MG TAB PO ONE (09:01)
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
[2024-07-15 10:30] VITALS: TEMP 97.9
[2024-07-15 10:33] VITALS: BP 119/70; O2SAT 100
== END 2024-07-15 10:25 | disposition home or self-care (01) ==
LOC: ER 08:14
DX: S20.219A Contusion of unspecified front wall of thorax, initial encounter (principal); S30.1XXA Contusion of abdominal wall, initial encounter; V49.49XA Driver injured in collision with other motor vehicles in traffic accident, initial encounter
CPT/HCPCS: 70450; 71250; 72125; 74176; 99284